=== PATIENT | male | born 1955 | race Caucasian/White ===

== ENCOUNTER 2023-03-22 05:55 | Day surgery (SDC) | payer MEDICARE, BC ==
[2023-03-21 11:15] LABS: BASOPHILS % (AUTO) 0.5 % (0-1); EOSINOPHILS # (AUTO) 0.1 X10'3 (0-0.9); EOSINOPHILS % (AUTO) 1.3 % (0-6); HEMATOCRIT 41.1 % (42.0-52.0); HEMOGLOBIN 13.9 g/dl (14.0-17.9); LYMPHOCYTES # (AUTO) 1.5 X10'3 (1.1-4.8); MEAN CORPUSCULAR HEMOGLOBIN 30.2 PG (27.0-31.0); MEAN CORPUSCULAR HGB CONC 33.8 g/dL (33.0-36.5); MEAN CORPUSCULAR VOLUME 89.4 FL (78-98); MEAN PLATELET VOLUME 9.9 FL (7.4-10.4); MONOCYTES # (AUTO) 0.4 X10'3 (0-0.9); MONOCYTES % (AUTO) 6.1 % (2-12); NEUTROPHILS # (AUTO) 4.9 X10'3 (1.8-7.7); NEUTROPHILS % (AUTO) 71.1 % (42-75); PLATELET COUNT 159 X10'3 (140-440)
[2023-03-21 11:20] LABS: ALBUMIN 3.6 G/DL (3.4-5.0); ANION GAP 8 (8-16); BLOOD UREA NITROGEN 17 MG/DL (7-18); BUN/CREATININE RATIO 17.3 (10.0-20.0); CALCIUM 8.9 MG/DL (8.5-10.1); CHLORIDE 105 MMOL/L (99-107); CREATININE 0.98 MG/DL (0.60-1.10); GLUCOSE 99 MG/DL (70-104); POTASSIUM 4.1 MMOL/L (3.5-5.1); SODIUM 139 MMOL/L (135-145); TOTAL CARBON DIOXIDE 25.8 MMOL/L (24-32); eGFR 76 ML/MIN
[2023-03-21 11:23] LABS: APTT 29 SECONDS (22-32)
[2023-03-22] VITALS (15 sets, daily range): BP systolic 137–176; BP diastolic 67–87
[~2023-03-22] VITALS: Ht 172.7 cm; Wt 80.8 kg
[2023-03-22] MEDS ORDERED: normal saline 1000ml 1,000 ML IV SCH (06:15)
[2023-03-22] MEDS ORDERED: FLEC100T PO (06:52)
[2023-03-22] MEDS ORDERED: ATOR20TA66 PO (06:52)
[2023-03-22] MEDS ORDERED: RIVA20TA PO (06:52)
[2023-03-22] MEDS ORDERED: LEVO50TA8 PO (06:52)
[2023-03-22] MEDS ORDERED: cefazolin 2gm/D5W 100mL 100 ML IV ONE (07:15)
[2023-03-22] MEDS ORDERED: LIDOCAINE 2%/EPI 1:100,000 inj. Multi-dose 20 ML VIAL ONE (07:30)
[2023-03-22] MEDS ORDERED: ceFAZolin 1000mg inj ONE (07:30)
[2023-03-22] MEDS ORDERED: fentaNYL/PF 50MCG/1 ML 2ML syringe ONE (07:30)
[2023-03-22] MEDS ORDERED: midazolam 1 mg/ML 2ml injection ONE ×2 (07:30→08:36)
[2023-03-22] MEDS ORDERED: HYDROcodone/acetaminophen 10/325mg tab PO PRN (10:00)
[2023-03-22] MEDS ORDERED: HYDROcodone/acetaminophen 5mg/325mg tablet PO PRN (10:00)
[2023-03-22] MEDS ORDERED: vancomycin/NS 1 GM ADD-VANTAGE 250 ML IV ONE (10:10)
--- NOTE | 2023-03-22 13:15 | NUR ---
Report to Mery MALIN.
== END 2023-03-22 16:00 | disposition home or self-care (01) ==
LOC: SSTAY O 05:55
PROVIDERS: ATTEND Internal Medicine Cardiovascular Disease
DX: I49.5 Sick sinus syndrome (principal); I48.0 Paroxysmal atrial fibrillation; E78.5 Hyperlipidemia, unspecified; E03.9 Hypothyroidism, unspecified; M35.3 Polymyalgia rheumatica; Z86.73 Personal history of transient ischemic attack (TIA), and cerebral infarction without residual deficits; Z79.899 Other long term (current) drug therapy; Z98.890 Other specified postprocedural states; Z72.89 Other problems related to lifestyle; Z88.2 Allergy status to sulfonamides; Z82.49 Family history of ischemic heart disease and other diseases of the circulatory system; Z82.61 Family history of arthritis
CPT/HCPCS: 33208; 36415; 71046; 80048; 85025; 85610; 85730; 93005; 99152; 99153; C1785; C1898; J0690; J2250; J3010; J3370; J7030; A4565; A6449

== ENCOUNTER 2023-05-10 14:45 | Emergency (ER) | payer MEDICARE, BC ==
[~2023-05-10] VITALS: Ht 172.7 cm; Wt 78.2 kg
[~2023-05-10 14:45] MED LIST: ATOR20TA66 PO; FLEC100T PO; LEVO50TA8 PO; RIVA20TA PO
[2023-05-10 15:55] VITALS: BP 102/85; PULSE 61; RESP 18; TEMP 98.9; O2SAT 98
[2023-05-10] MEDS ORDERED: CEPH-585 PO (17:38)
[2023-05-10] MEDS ORDERED: CefTRIAXone 1000mg IM Kit (w/lidocaine diluent) IM ONE (17:40)
== END 2023-05-10 18:01 | disposition home or self-care (01) ==
LOC: ER 14:46
DX: L03.313 Cellulitis of chest wall (principal); Z88.2 Allergy status to sulfonamides; Z79.899 Other long term (current) drug therapy
CPT/HCPCS: 96372; 99283; J0696